=== PATIENT | female | born 1960 | race Caucasian/White ===

== ENCOUNTER 2024-12-27 15:26 | Inpatient (IN) | payer OTHER ==
--- OUTSIDE RECORDS SUMMARY | 2024-12-27 15:29 | XMS REPORT | Continuity of Care Document ---
Author Name Unknown Address [address] [facility] [address] [place] [address] [facility] Address [address] [facility] [address] [place] [address] Care Team Providers Care Director Of Graduate Medical Education Name Role Phone Pcp, Patient Does Not Have A Primary Care Physic radha ADENIKE LÓPEZ Attending Clinician Unavailable Adenike López MD Attending Clinician [phone] Chana Ceja RN Attending Clinician UnavailVenkata Bellamy DO Attending Clinician [phone] CHANEL STEWART Attending Clinician Unavailable CHANEL STEWART Attending Clinician Unavailable Chanel Stewart MD Attending Clinician [phone] DAYNA EMERSON Attending Clinician Unavailable DAYNA EMERSON Attending Clinician Unavailable Dayna Emerson PA-C Attending Clinician [phone] BLANQUITA WATTS Attending Clinician Unavailable BLANQUITA WATTS Attending Clinician Unavailable ADENIKE LÓEPZ Admitting Clinician Unavailable Adenike López MD Admitting Clinician [phone] Payers Payer Name Policy Type Policy Number Effective Date Expirati on Date Source [employer] MEDICARE OUT OF NETWORK [id number] 2024 00:00:00 [employer] MEDICARE [id number] 2024 00:00:00 Problems Condition Name Condition Details Condition Category Status Onset Date Resolution Date Last Treatment Date Treating Clinician Comments Source Obesity (BMI 30-39.9) Obesity (BMI 30-39.9) Disease Active 2023-11 0-21 00:00: 00 [facility] Lisfranc dislocatio n, left, initial encounter Lisfranc dislocatio n, left, initial encounter Disease Active 2023-11 0-17 00:00: 00 [facility] Allergies, Adverse Reactions, Alerts Allergy Name Allergy Type Status Severity Reaction(s) Onset Date Inactive Date Treating Clinician Comments Source Adhesive Tape-Kd icones Drug Allergy Active Swelling 2023-11 018 00:00: 00 [facility] ADHESIVE TAPE-KD ICONES DRUG Active High Swelling 2023-11 018 00:00: 00 [facility] Sulfa (Sulfona mide Antibiot ics) Propensi ty to adverse reaction s Active Rash 2023-11 0-13 00:00: 00 [facility] SULFA (SULFONA MIDE ANTIBIOT ICS) Drug Class Active Rash 2023-11 0- 00:00: 00 [facility] Social History Social Habit Start Date Stop Date Quantity Comments Source History of tobacco use Cigarette Smoker [facility] Tobacco use and exposure 2024-11-29 00:00:00 2024-11-29 00:00:[address] tobacco user [facility] History of Social function 2024-11-06 00:00:00 2024-11-06 00:00:00 [facility] Tobacco Comment 2024-09-06 00:00:00 2024-09-06 00:00:00 47 YEARS SMOKING OVER [address] [facility] Sex assigned at 1960 00:00:00 1960 00:00:00 [facility] Smoking Status Start Date Stop Date Source Smokes tobacco daily 2024-11-29 00:00:00 [facility] Medications Ordered Medication Name Filled Medication Name Start Date Stop Date Current Medication? Ordering Clinician Indication Dosage Frequency Signature (SIG) Comments Components Source hydralAZINE (APRESOLINE ) injection 10 mg 2023-11 0 19:17: 17 09-09 23:37 :36 No 10mg 10 mg, Slow IV Push, Q20MIN PRN, 2 doses, Starting on Mon09/09/24 at 1417, Until Mon09/09/24 at 1837, Routine, Other, SBP > 170mmHg or DBP > 90mmHg, PACU [facility] FENTanyl (PF) (SUBLIMAZE) injection 25 mcg 2023-11 19:17: 17 09-09 23:37 :36 No 25ug 25 mcg, Slow IV Push, Q5MIN PRN, 4 doses, Starting on Mon09/09/24 at 1417, Until Mon09/09/24 at 1837, Routine, Pain Scale 4-6, PACU [facility] ondansetron (ZOFRAN (PF)) injection 4 mg 2023-11 19:17: 16 09-09 23:37 :36 No 4mg 4 mg, Slow IV Push, PRN, 1 dose, Starting on Mon09/09/24 at 1417, Until Mon09/09/24 at 1837, Routine, Nausea and Vomiting (N/V), PACU [facility] sugammadex (BRIDION) injection 2023-11 18:45: 00 09-09 19:29 :46 No IV Push, ONCE INTRA PROCEDURE, Starting on Mon09/09/24 at 1345, Until Mon09/09/24 at 1429, Routine, Intra-op [facility] dexamethaso ne (DECADRON PHOSPHATE) injection 2023-11 17:28: 00 09-09 19:29 :46 No Intravenou s, ONCE INTRA PROCEDURE, Starting on Mon09/09/24 at 1228, Until Mon09/09/24 at 1429, Routine, Intra-op [facility] ceFAZolin (ANCEF) injection 2023-11 17:15: 00 09-09 19:29 :46 No Intravenou s, ONCE INTRA PROCEDURE, Starting on Mon09/09/24 at 1215, Until Mon09/09/24 at 1429, MARVIN, Intra-op [facility] ondansetron (ZOFRAN (PF)) injection 2023-11 17:09: 00 09-09 19:29 :46 No Slow IV Push, ONCE INTRA PROCEDURE, Starting on Mon09/09/24 at 1209, Until Mon09/09/24 at 1429, Routine, Intra-op [facility] lidocaine 1% (XYLOCAINE) 100 mg/10 mL (1 %) injection 2023-11 17:05: 00 09-09 19:29 :46 No Intravenou s, ONCE INTRA PROCEDURE, Starting on Mon09/09/24 at 1205, Until Mon09/09/24 at 1429, Routine, Intra-op [facility] rocuronium (ZEMURON) injection 2023-11 17:05: 00 09-09 19:29 :46 No IV Push, ONCE INTRA PROCEDURE, Starting on Mon09/09/24 at 1205, Until Mon09/09/24 at 1429, Routine, Intra-op [facility] propofoL IV infusion 2023-11 17:05: 00 09-09 19:29 :46 No Intravenou s, ONCE INTRA PROCEDURE, Starting on Mon09/09/24 at 1205, Until Mon09/09/24 at 1429, Routine, Intra-op [facility] FENTanyl (PF) (SUBLIMAZE) injection 2023-11 17:05: 00 09-09 19:29 :46 No Intravenou s, ONCE INTRA PROCEDURE, Starting on Mon09/09/24 at 1205, Until Mon09/09/24 at 1429, Routine, Intra-op [facility] lactated ringers IV infusion 2023-11 16:55: 00 09-09 19:29 :46 No IV Infusion, CONTINUOUS PRN, Starting on Mon09/09/24 at 1155, Until Mon09/09/24 at 1429, Routine, Intra-op [facility] ropivacaine 0.5 % (NAROPIN (PF)) injection 2023-11 16:45: 00 09-09 19:29 :46 No Epidural, ONCE INTRA PROCEDURE, Starting on Mon09/09/24 at 1145, Until Mon09/09/24 at 1429, Routine, Intra-op [facility] midazolam (VERSED) injection 2023-11 16:45: 00 09-09 19:29 :46 No IV Push, ONCE INTRA PROCEDURE, Starting on Mon09/09/24 at 1145, Until Mon09/09/24 at 1429, Routine, Intra-op [facility] atorvastati n 20 mg tablet 2023-11 14:29: 47 Yes Take 1 tablet every day by oral route. [facility] QUEtiapine 25 mg tablet 2023-11 14:29: 47 Yes TAKE 1 TABLET BY MOUTH EVERY DAY AT NIGHT [facility] HYDROcodone -acetaminop hen 10-325 mg tablet 2023-11 00:00: 00 09-17 04:59 :00 No 4647 1{tbl} Take 1 tablet by mouth every 6 (six) hours as needed for Pain (scale 7-10) for up to 7 days. Indication s: acute pain [facility] aspirin E.C. 325 mg EC tablet 2023-11 00:00: 00 09-09 00:00 :00 No [id number] 325mg Take 1 tablet by mouth in the morning and 1 tablet in the evening. Take with meals. [facility] ondansetron (ZOFRAN) 4 mg tablet 2023-11 00:00: 00 09-09 00:00 :00 No [id number] 4mg Take 1 tablet by mouth every 6 (six) hours. [facility] traMADoL 50 mg tablet 2023-11 00:00: 00 09-09 00:00 :00 No 4647 50mg Take 1 tablet by mouth every 6 (six) hours as needed for Pain (scale 4-6). Indication s: acute pain [facility] naproxen 500 mg tablet 2023-11- 00:00: 00 Yes [id number] 500mg Take 1 tablet by mouth in the morning and 1 tablet in the evening. Take with meals. [facility] HYDROcodone -acetaminop hen 10-325 mg tablet 2023-11 0-13 00:00: 00 09-09 04:59 :00 No 4647 1{tbl} Take 1 tablet by mouth every 6 (six) hours as needed for Pain (scale 7-10) for up to 7 days. Indication s: acute pain [facility] methocarbam oL 500 mg tablet 2023-11 0 00:00: 00 09-07 04:59 :00 No [id number] 500mg Take 1 tablet by mouth in the morning and 1 tablet at noon and 1 tablet in the evening. Do all this for 5 days. [facility] venlafaxine XR 75 mg 24 hr capsule 07-31 00:00: 00 Yes [facility] Vital Signs Vital Name Observation Time Observation Value Comments S ource Body temperature 2024-11-29 18:26:00 36.78 [facility] Body height 2024-11-29 18:26:00 170.2 cm [facility] Body weight 2024-11-29 18:26:00 90.719 kg [facility] BMI 2024-11-29 18:26:00 31.32 kg/m2 [facility] Body height 2024-11-06 18:32:00 170.2 cm [facility] Body weight 2024-11-06 18:32:00 90.719 kg [facility] BMI 2024-11-06 18:32:00 31.32 kg/m2 [facility] Body temperature 2024-09-25 16:25:[address] [facility] Body height 2024-09-25 16:25:00 170.2 cm [facility] Body weight 2024-09-25 16:25:00 90.719 kg [facility] BMI 2024-09-25 16:25:00 31.32 kg/m2 [facility] Heart rate 2024-09-09 21:10:00 76 /min [facility] Respiratory rate 2024-09-09 21:10:00 16 /min [facility] Oxygen saturation in Arterial blood by Pulse oximetry 2024-09-09 21:10:00 96 /min [facility] Systolic blood pressure 2024-09-09 21:05:00 97 mm[Hg] [facility] Diastolic blood pressure 2024-09-09 21:05:00 65 mm[Hg] [facility] Body temperature 2024-09-09 19:25:[address] [facility] Body height 2024-09-09 14:44:00 170.2 cm [facility] Body weight 2024-09-09 14:44:00 90.719 kg [facility] BMI 2024-09-09 14:44:00 31.32 kg/m2 [facility] Systolic blood pressure 2024-09-09 14:44:00 135 mm[Hg] [facility] Diastolic blood pressure 2024-09-09 14:44:00 77 mm[Hg] [facility] Heart rate 2024-09-09 14:44:00 63 /min [facility] Body temperature 2024-09-09 14:44:[address] [facility] Respiratory rate 2024-09-09 14:44:00 18 /min [facility] Body height 2024-09-09 14:44:00 170.2 cm [facility] Body weight 2024-09-09 14:44:00 90.719 kg [facility] BMI 2024-09-09 14:44:00 31.32 kg/m2 [facility] Oxygen saturation in Arterial blood by Pulse oximetry 2024-09-09 14:44:00 96 /min [facility] Body temperature 2024-09-07 21:03:[address] [facility] Respiratory rate 2024-09-07 21:03:00 18 /min [facility] Oxygen saturation in Arterial blood by Pulse oximetry 2024-09-07 21:03:00 94 /min [facility] Systolic blood pressure 2024-09-07 21:00:00 129 mm[Hg] [facility] Diastolic blood pressure 2024-09-07 21:00:00 95 mm[Hg] [facility] Heart rate 2024-09-07 21:00:00 65 /min [facility] Body height 2024-09-07 20:18:00 162.6 cm [facility] Body weight 2024-09-07 20:18:00 90.719 kg [facility] BMI 2024-09-07 20:18:00 34.33 kg/m2 [facility] Systolic blood pressure 2024-09-05 16:40:00 150 mm[Hg] [facility] Diastolic blood pressure 2024-09-05 16:40:00 78 mm[Hg] [facility] Heart rate 2024-09-05 16:40:00 72 /min [facility] Body height 2024-09-05 16:40:00 170.2 cm [facility] Body weight 2024-09-05 16:40:00 90.719 kg [facility] BMI 2024-09-05 16:40:00 31.32 kg/m2 [facility] Oxygen saturation in Arterial blood by Pulse oximetry 2024-09-05 16:40:00 93 /min [facility] Procedures Procedure Date / Time Performed Performing Clinician Source XR FOOT 3+ VW LEFT 2024-11-29 17:33:27 [facility]W LEFT 2024-11-29 17:33:16 [facility]KLE [facility]+ VW LEFT 2024-09-25 16:37:18 [facility]OT [facility]+ VW LEFT 2024-09-25 16:37:09 [facility] [place] TIME OR (NON-REPORTABLE) 2024-09-09 19:19:[address] [facility] [place] TIME OR (NON-REPORTABLE) 2024-09-09 19:19:[address] [facility] NERVE BLOCK 2024-09-09 17:59:38 Yang lomax [facility] INTUBATION 2024-09-09 17:06:00 Venkata Greene [facility] [id number] - [place] OPEN TREATMENT TARSOMETATARSAL JOINT DISLOCATION 2024-09-09 16:46:[address] [facility] [id number] - [place] OPEN TREATMENT METATARSAL FRACTURE EACH 2024-09-09 16:46:00 Adenike López [facility] [id number] - [place] PRQ SKEL FIXJ TARS JT DISLC W/MANJ 2024-09-09 16:46:00 [facility] Start Date/Time End Date/Time Encounter Type Admission Type Attending Clinicians Care Facility Care Department Encounter ID Source 2024-12-04 11:00:00 2024-12-04 11:00:00 Outpatient R ADENIKE LÓPEZ [facility] [id number] [facility] 2024-11-29 11:25:06 2024-11-29 23:59:00 [facility] 1.2.840.114 350.1.13.10 4.2.7.2.686 [id number] [facility] 2024-11-29 11:40:00 2024-11-29 12:52:59 Outpatient R ADENIKE LÓPEZ [facility] [id number] [facility] 2024-11-29 11:40:00 2024-11-29 12:52:59 Office Visit Adenike López [facility] MEDICAL OFFICE BUILDING 1.2.840.114 350.1.13.10 4.2.7.2.686 [id number] [facility] 2024-11-29 11:24:51 2024-11-29 11:24:51 [facility] 1.2.840.114 350.1.13.10 4.2.7.2.686 [id number] [facility] 2024-11-26 00:00:00 2024-11-27 08:06:05 Telephone Adenike López [facility] 1.2.840.114 350.1.13.10 4.2.7.2.686 [id number] [facility] 2024-11-06 11:32:02 2024-11-06 23:59:00 Outpatient R ADENIKE LÓPEZ [facility] [id number] [facility] 2024-11-06 11:32:02 2024-11-06 23:59:00 Hospital En[facility] 1.2.840.114 350.1.13.10 4.2.7.2.686 [id number] [facility] 2024-11-06 11:50:00 2024-11-06 13:02:08 [facility] 1.2.840.114 350.1.13.10 4.2.7.2.686 [id number] [facility] 2024-11-06 11:31:54 2024-11-06 11:31:54 Hospital Encounter [facility] 1.2.840.114 350.1.13.10 4.2.7.2.686 [id number] [facility] 2024-09-25 10:20:54 2024-09-25 23:59:00 Outpatient R ADENIKE LÓPEZ [facility] [id number] [facility] 2024-09-25 10:20:54 2024-09-25 23:59:00 Hospital Encounter [facility] 1.2.840.114 350.1.13.10 4.2.7.2.686 [id number] [facility] 2024-09-25 10:20:48 2024-09-25 23:59:00 Hospital Encounter [facility] 1.2.840.114 350.1.13.10 4.2.7.2.686 [id number] [facility] 2024-09-25 10:10:00 2024-09-25 10:20:00 Office Visit Adenike López [facility] MEDICAL OFFICE BUILDING 1.2.840.114 350.1.13.10 4.2.7.2.686 [id number] [facility] 2024-09-09 08:54:00 2024-09-09 16:15:00 Outpatient R ADENIKE LÓPEZ [facility] [id number] [facility] 2024-09-09 08:54:00 2024-09-09 16:15:00 Hospital Encounter Adenike López [facility] 1.2.840.114 350.1.13.10 4.2.7.2.686 [id number] [facility] 2024-09-09 11:55:00 2024-09-09 14:29:00 Anesthesia Event Chana Ceja, Chana Stiles [facility] 1.2.840.114 350.1.13.10 4.2.7.2.686 [id number] [facility] 2024-09-09 11:53:00 2024-09-09 14:21:00 Surgery Adenike López [facility] 1.2.840.114 350.1.13.10 4.2.7.2.686 [id number] [facility] 2024-09-07 15:19:00 2024-09-07 16:12:00 Emergency X CHANEL STEWART DONNELL [facility] ERT [id number] [facility] 2024-09-07 15:19:00 2024-09-07 16:12:00 Emergency Chanel Stewart [facility]S INCLUDE [facility] BEDS AT THE [facility] 1.2.840.114 350.1.13.10 4.2.7.2.686 [id number] [facility] 2024-09-05 12:05:51 2024-09-05 23:59:00 Outpatient R DAYNA EMERSON SELENA [facility] [id number] [facility] 2024-09-05 11:30:00 2024-09-05 11:58:41 Office Visit Dayna Emerson [facility] 1.2.840.114 350.1.13.10 4.2.7.2.686 [id number] [facility] 2024-09-01 04:08:22 2024-09-01 04:08:22 Outpatient BLANQUITA VANEGAS PHILLIP [facility] [id number] [facility] Results Test Description Test Time Test Comments Results Result Comments Source XR Ankle 3+ vw left 18:55:04 Ordering physician: ADENIKE Jean-Baptiste of service: ?11/29/2024 12:43 PMClinical history: ?ankle pain ? COMPARISON: 11/06/2024, 09/25/2024 Technique: 3 views left ankle 3 views of the left footTechnical Quality: AdequateFINDINGS: Left ankle:The patient is status post distal fibular ORIF with plate and screwfixation. This plate and screw fixation is stable without evidence ofloosening.Medial talar dome shows subtle indentation consistent with evolving medialosteochondral defect. No joint effusion present. Left foot: This patient has undergone repair of Lisfranc injury pattern.There are plate and screw fixation of the tarsometatarsal articulation ofthe first second third rays. There is also a screw spanning the base of thesecond metatarsal and medial cuneiform. The plate and screw fixation of the first ray proximal screw has backed outfrom the bone and the plate lies 2 mm proximal to the cortical surface. Onthe ankle screws there is the suspicion of a fracture through the screw aswell. This is not seen however on the images on the foot series. There ishowever suspicious soft tissue swelling over the plate and the findingsraise the question of loosening of this part of the fixation. The other 2plates appear stable. Also the screw spanning the Lisfranc articulationseems unchanged. [facility] XR Foot 3+ vw left 18:55:04 Ordering physician: ADENIKE Jean-Baptiste of service: ?11/29/2024 12:43 PMClinical history: ?ankle pain ? COMPARISON: 11/06/2024, 09/25/2024 Technique: 3 views left ankle 3 views of the left footTechnical Quality: AdequateFINDINGS: Left ankle:The patient is status post distal fibular ORIF with plate and screwfixation. This plate and screw fixation is stable without evidence ofloosening.Medial talar dome shows subtle indentation consistent with evolving medialosteochondral defect. No joint effusion present. Left foot: This patient has undergone repair of Lisfranc injury pattern.There are plate and screw fixation of the tarsometatarsal articulation ofthe first second third rays. There is also a screw spanning the base of thesecond metatarsal and medial cuneiform. The plate and screw fixation of the first ray proximal screw has backed outfrom the bone and the plate lies 2 mm proximal to the cortical surface. Onthe ankle screws there is the suspicion of a fracture through the screw aswell. This is not seen however on the images on the foot series. There ishowever suspicious soft tissue swelling over the plate and the findingsraise the question of loosening of this part of the fixation. The other 2plates appear stable. Also the screw spanning the Lisfranc articulationseems unchanged. [facility] FL TIME OR (NON-REPORTABLE ) 19:19:56 These images do not require a Radiology diagnostic report. [facility] FL TIME OR (NON-REPORTABLE ) 19:19:56 These images do not require a Radiology diagnostic report. [facility] Nerve Block 17:59:38 Arturo Whitaker MD ? ? 09/09/2024 ?1:01 PM Nerve Block Nerve Block Procedure List: popliteal / adductor. Patient Location: Block RoomLaterality: LeftSurgical Anesthesia: Post Op Pain: Start Time: 09/09/2024 11:45 AMEnd Time: 09/09/2024 11:47 AMPost Op Pain Management requested by surgeon per surgical: Progress Note and H&PAnesthesiologist: Arturo Whitaker MDPreanesthetic timeout completed prior to procedure: patient identified,IV checked, site marked, risks and benefits discussed, surgical consent, monitors and equipment checked, pre-op evaluation, timeout performedInformed consent obtained patient wishes to proceed: yesPatient Position: supineSterile Prep/Drape: YesMonitoring: continuous pulse ox, blood pressure and ECGInjection Technique: single-shotNeedle Gauge: 22 GNeedle Length: 4.0Number of Attempts: 1Technique: Ultrasound guided, Negative aspiration and Intermittent aspiration during injectionSensory Effect: AdequateEvents: Negative Aspiration, No paresthesia on incremental injection, No symptoms of intraneural or IV injection, Local anesthetic solution visualized around nerve and Patient tolerated procedure well Medications Given: Regional:Ropiv 0.5% 30 mL Sedation:Midazolam 2Fentanyl 50 Additional Notes:Block requested by Dr López for left tarsometatarsal ORIF [facility] Intubation 17:06:00 Venkata Greene DO ? ? 09/09/2024 12:24 PMIntubationDate/Time: 09/09/2024 12:06 PMUrgency: elective Airway not difficult General Information and Staff Patient location during procedure: ORPerformed: anesthesiologist Performed by: Venkata Greene DOAuthorized by: Venkata Greene DO ? Indications and Patient ConditionIndications for airway management: anesthesiaSpontaneous ventilation: presentSedation level: deepPreoxygenated: yesPatient position: sniffingMILS maintained throughoutMask difficulty assessment: 0 - not attempted Final Airway DetailsFinal airway type: endotracheal airway Successful airway: ETTCuffed: yes Successful intubation technique: video laryngoscopyFacilitating devices/methods: intubating styletEndotracheal tube insertion site: oralETT size (mm): 7.0Cormack-Lehane Classification: grade I - full view of glottisPlacement verified by: chest auscultation and capnometry Number of attempts at approach: 1Ventilation between attempts: noneNumber of other approaches attempted: 0 Additional CommentsSmooth, atraumatic, dentition and lips unchanged from pre-op. [facility] History and Physical Notes Date/Time Note Provider Source 2024-09-09 09:44:17 Orthopaedic Pre-Operative Note 09/09/2024 9:44 AM Had a discussion with Aileen Kumari about their upcoming procedure/surgery. The discussed procedure was Left foot CRPP vs ORIF. The risk, benefits, and alternatives to treatment were discussed of this options as well as non-operative treatment. The risks discussed where as follows, but not limited to chance of heart attack, chance of stroke, chance of , infection from the procedure/surgery, bleeding from the procedure/surgery, possible need for blood transfusions, symptomatic implants, malunion of fracture , nonunion of fracture, damage to nerves/arteries/veins/tendons /bones/skin/muscle/ligaments, need for further surgeries, blood clots with specfic focus on blood clots of the extremties (deep vein thrombosis) and blood clots of the lungs (pulmonary embolism). Aileen Kumari understood the risks, all questions were answered and Aileen Kumari would like to proceed with surgery. Please see informed consent statement below. I was present during the discussion and all questions were answered with Aileen Kumari consent. H&P reviewed including review of system and been no changes. Patient had been marked personally by me. Physical exam before procedure/surgery is as follows: Gen: NAD, swelling of foot with blistering SILT dp/sp/t/s/s Motor intact ehl/fhl/gs/ta 2+ dp and pt pulse, bcr Adenike López MD, MPH Department of Orthopaedic Surgery and Language Therapist Professor - Foot and Ankle Division [facility] Informed consent discussed with the patient, including: condition, proposed care, treatments and services, alternative forms of treatment, and risks of no treatment. Details discussed around the procedures to be used, and the risks and hazards involved, potential benefits, and side effects of the patient s proposed care, treatment, and services; the likelihood of the patient achieving his or her goals; and any potential problems that might occur during recuperation. Reasonable alternative also discussed with the patient s proposed care, treatment, and services. The discussion encompasses risks, benefits, and side effects related to the alternative and risks related to not receiving the proposed care, treatment, and services. ORT-ORTHOPAEDIC SURGERY STAFF [facility] Procedure Notes Date/Time Note Provider Source 2024-09-09 12:59:38 Associated Order(s): Nerve Block Nerve Block Nerve Block Procedure List: popliteal / adductor. Patient Location: Block Room Laterality: Left Surgical Anesthesia: Post Op Pain: Start Time: 09/09/2024 11:45 AM End Time: 09/09/2024 11:47 AM Post Op Pain Management requested by surgeon per surgical: Progress Note and H&P Anesthesiologist: Arturo Whitaker MD Preanesthetic timeout completed prior to procedure: patient identified,IV checked, site marked, risks and benefits discussed, surgical consent, monitors and equipment checked, pre-op evaluation, timeout performed Informed consent obtained patient wishes to proceed: yes Patient Position: supine Sterile Prep/Drape: Yes Monitoring: continuous pulse ox, blood pressure and ECG Injection Technique: single-shot Needle Gauge: 22 G Needle Length: 4.0 Number of Attempts: 1 Technique: Ultrasound guided, Negative aspiration and Intermittent aspiration during injection Sensory Effect: Adequate Events: Negative Aspiration, No paresthesia on incremental injection, No symptoms of intraneural or IV injection, Local anesthetic solution visualized around nerve and Patient tolerated procedure well Medications Given: Regional: Ropiv 0.5% 30 mL Sedation: Midazolam 2 Fentanyl 50 Additional Notes:Block requested by Dr López for left tarsometatarsal ORIF AN-ANESTHESIOLOGY ANESTHESIOLOGIST [facility] 2024-09-09 12:24:11 Associated Order(s): Intubation Intubation Date/Time: 09/09/2024 12:06 PM Urgency: elective Airway not difficult General Information and Staff Patient location during procedure: OR Performed: anesthesiologist Performed by: Venkata Greene DO Authorized by: Venkata Greene DO Indications and Patient Condition Indications for airway management: anesthesia Spontaneous ventilation: present Sedation level: deep Preoxygenated: yes Patient position: sniffing MILS maintained throughout Mask difficulty assessment: 0 - not attempted Final Airway Details Final airway type: endotracheal airway Successful airway: ETT Cuffed: yes Successful intubation technique: video laryngoscopy Facilitating devices/methods: intubating stylet Endotracheal tube insertion site: oral ETT size (mm): 7.0 Cormack-Lehane Classification: grade I - full view of glottis Placement verified by: chest auscultation and capnometry Number of attempts at approach: 1 Ventilation between attempts: none Number of other approaches attempted: 0 Additional Comments Smooth, atraumatic, dentition and lips unchanged from pre-op. T [facility]
[2024-12-27] MEDS ORDERED: ALBUTEROL 2.5 MG/3 ML NEB SOL ONE ×2 (16:13→18:39)
[2024-12-27] MEDS ORDERED: AZITHROMYCIN 250 MG TAB ONE (16:14)
[2024-12-27] MEDS ORDERED: IPRATROPIUM BROM 0.5MG/2.5ML ONE ×2 (16:14→18:39)
[2024-12-27 16:21] LABS: Absolute Basophils 0.1 K/uL (0-0.5); Absolute Eosinophils 0.1 K/uL (0-0.5); Absolute Lymphocytes (CBC) 1.3 K/uL (0.7-4.9); Absolute Monocytes 0.2 K/uL (0.1-1.3); Absolute Neutrophil 8.5 K/uL (1.8-8.0); Basophils % 0.9 % (0-1.3); Eosinophils % 0.8 % (0-4.4); Hematocrit 38.5 % (36.0-45.0); Hemoglobin 13.4 g/dL (12.0-15.0); Lymphocytes % 12.5 % (15.3-44.8); MCH 33.8 pg (27.0-35.0); MCHC 34.9 g/dL (32.0-36.0); MCV 96.8 fL (80-100); MPV 7.3 fL (7.6-11.3); Monocytes % 1.8 % (3.3-12.3); Platelets 429 thou/uL (152-406); RBC Red Blood Cell Count 3.98 M/uL (3.86-4.86); Red Cell Distribution Width 14.3 % (12.1-15.2)
[2024-12-27 16:32] LABS: Anion Gap 8.1 mEq/L (5.0-15.0)
[2024-12-27 16:33] LABS: Potassium 4.1 mEq/L (3.5-5.1)
--- NOTE | 2024-12-27 16:37 | RAD REPORT ---
Procedure: Chest Single View HISTORY: Cough COMPARISON: none FINDINGS: The lungs appear clear of acute infiltrate. No significant pleural effusion noted. The heart is normal size. IMPRESSION: No acute abnormality is displayed.
[2024-12-27 16:38] LABS: SARS-CoV-2 Antigen CONTROL BLUE LINE VIS/BG OK; SARS-CoV-2 Antigen Rapid Res Negative (Negative)
[2024-12-27 17:40] LABS: Arterial Blood Carboxyhemoglob 3.2 % (0-1.5); Blood Gas THB 13.9 g/dl (12-18); Blood O2 Saturation 87.4 % (92-98.5)
--- NOTE | 2024-12-27 18:08 | RAD REPORT ---
EXAMINATION: CTA CHEST PE CLINICAL INDICATION: Cough TECHNIQUE: 100 cc 370 Isovue administered intravenously. This examination was performed according to an angiographic protocol with 3D post-processing. This involves 3D reconstructions, MIPs, volume rendered images and/or shaded surface rendering. One or more of the following dose reduction techniqu es were used: Automated exposure control, adjustment of the mA and/or kV according to patient size, and/or iterative reconstruction. Unless otherwise specified, incidental findings do not require dedic ated imaging follow-up. [id number]. COMPARISON: No prior exam. FINDINGS: Suboptimal opacification pulmonary artery. No gross central pulmonary embolus seen. An aortic aneurysm not noted. No pleural effusion. No pericardial effusion. Mild right lower lobe opacities 2.6 cm left adrenal mass Hounsfield unit negative for likely an adenoma IMPRESSION: No gross evidence of a central pulmonary embolus Mild right lower lobe opacities may indicate a mild pneumonia
--- NOTE | 2024-12-27 18:13 | ER ---
Nurse's Notes [facility] Name: Farideh Kumari Age: 64 yrs Sex: Female : 1960 Arrival Date: 12/27/2024 Time: 15:26 Bed 19 Private MD: Diagnosis: Unspecified bacterial pneumonia Presentation: 12/27 15:34 Chief complaint: Patient states: Headache, cough, sore throat, diarrhea, and shortness cm10 of breath onset Monday. Pt states that she was on a cruise last week and her sister tested positive for COVID. Pt reports that she was seen at urgent care and told to come to the ER if O2 is not above 92%. Pt received Decadron 10mg IM. Coronavirus screen: Client indicates they have traveled out of the [place] in the last 14 days. Ebola Screen: Patient reports travel to Ebola-affected area in the 21 days before illness onset. Patient reports having traveled to: [place], [place]. Initial Sepsis Screen: Does the patient meet any 2 criteria? No. Patient's initial sepsis screen is negative. Does the patient have a suspected source of infection? No. Patient's initial sepsis screen is negative. Risk Assessment: Do you want to hurt yourself or someone else? Patient reports no desire to harm self or others. Onset of symptoms was December 27, 2024. 15:34 Method Of Arrival: Ambulatory cm10 15:34 Acuity: [place] 3 cm10 Triage Assessment: 15:38 General: Appears in no apparent distress. comfortable, Behavior is. Neuro: No deficits cm10 noted. Level of Consciousness is awake, alert, obeys commands, Oriented to person, place, time, situation, Appropriate for age. Respiratory: No deficits noted. Reports shortness of breath cough that is Airway is patent Respiratory effort is even, unlabored, Respiratory pattern is regular, symmetrical. Historical: - Allergies: 15:37 Sulfa (Sulfonamide Antibiotics); cm10 - Home Meds: 15:37 atorvastatin oral [Active]; Effexor Oral [Active]; cm10 - PMHx: 15:37 Hypercholesterolemia; Depressive disorder; cm10 - PSHx: 15:37 Total abdominal hysterectomy; cm10 - Immunization history:: Adult Immunizations up to date. - Infectious Disease History:: Denies. - Social history:: Smoking status: Patient reports the use of cigarette tobacco products, smokes one pack cigarettes per day. Screenin:45 [facility] ED Fall Risk Assessment (Adult) History of falling in the last 3 months, me1 including since admission No falls in past 3 months (0 pts) Confusion or Disorientation No (0 pts) Intoxicated or Sedated No (0 pts) Impaired Gait No (0 pts) Mobility Assist Device Used No (0 pt) Altered Elimination No (0 pt) Score/Fall Risk Level 0 - 2 = Low Risk Maintained a safe environment, Provided non-skid footwear, Hourly rounding (assess needs \T\ fall precautionary measures) done. Abuse screen: Denies threats or abuse. Nutritional screening: No deficits noted. Tuberculosis screening: No symptoms or risk factors identified. Assessment: 15:45 General: Appears ill, well groomed, well developed, well nourished, Behavior is calm, me1 cooperative, appropriate for age, Reports Headache, cough, sore throat, diarrhea, and shortness of breath onset Monday. Pt states that she was on a cruise last week and her sister tested positive for COVID. Pain: Complains of pain in head Pain does not radiate. Pain currently is 4 out of 10 on a pain scale. Quality of pain is described as aching, Pain began 2-3 days ago. Is continuous. Neuro: Level of Consciousness is awake, alert, obeys commands, Oriented to person, place, time, situation, Appropriate for age. Cardiovascular: Patient's skin is warm and dry. Rhythm is regular. Respiratory: Reports shortness of breath on exertion cough that is persistent Airway is patent Respiratory effort is even, unlabored, Respiratory pattern is regular, symmetrical, Breath sounds with wheezes bilaterally. GI: Reports diarrhea. : No signs and/or symptoms were reported regarding the genitourinary system. EENT: No signs and/or symptoms were reported regarding the EENT system. Derm: Skin is intact, is healthy with good turgor, Skin is pink, warm \T\ dry. Musculoskeletal: No signs and/or symptoms reported regarding the musculoskeletal system. 17:16 General: room air o2 sat dropped to 82%. Had patient sit up in bed and sat increased to me1 85%. o2 at 2 lpm via nc and sat increased to 96%. Vital Signs: 15:34 BP 136 / 65; Pulse 85; Resp 15; Temp 98.4(O); Pulse Ox 92% on R/A; Weight 90.72 kg; cm10 Height 5 ft. 7 in. ; Pain 2/10; 16:00 BP 118 / 64; Pulse 78; Resp 17; Pulse Ox 93% on R/A; me1 17:00 BP 135 / 65; Pulse 84; Resp 18; Pulse Ox 96% on 2 lpm NC; me1 18:00 BP 132 / 82; Pulse 78; Resp 16; Pulse Ox 93% on 3 lpm NC; me1 19:00 BP 120 / 62; Pulse 79; Resp 18; Pulse Ox 92% on 3 lpm NC; me1 15:34 Body Mass Index 31.32 (90.72 kg, 170.18 cm) cm10 15:34 Pain Scale: Adult cm10 ED Course: 15:32 Patient arrived in ED. ec2 15:33 Dmitry Shea MD is Attending Physician. ec2 15:37 Triage completed. cm10 15:38 Arm band placed on right wrist. Patient placed in an exam room, on a stretcher. cm10 15:45 Patient has correct armband on for positive identification. Bed in low position. Call ok1 light in reach. Side rails up X 1. Provided Education on: POC. Verbalized understanding.. Client placed on continuous cardiac and pulse oximetry monitoring. NIBP monitoring applied. athletic monitor on. Pulse ox on. NIBP on. 15:45 No provider procedures requiring assistance completed. me1 15:46 Jacey Taylor, THUY is Primary Nurse. me1 16:00 CXR XRAY In Process Unspecified. EDMS 16:11 Strep Sent. me1 16:11 SARS RAPID Sent. me1 16:11 Flu Sent. me1 16:11 BMP Sent. me1 16:11 CBC with Diff Sent. me1 16:11 Initial lab(s) drawn, by ok, sent to lab. COVID swab sent to lab. Flu and/or RSV swab me1 sent to lab. Strep swab sent to lab. Missed attempt(s): 22 gauge in left antecubital area. 17:55 CT Chest For PE Angio In Process Unspecified. EDMS 18:12 Elder Chow MD is Hospitalizing Provider. ec2 18:15 Inserted saline lock: 22 gauge in right wrist, using aseptic technique. me1 Administered Medications: 16:17 Drug: DuoNeb Nebulize (3:1) (2.5 mg - 0.5 mg) 3 ml Nebulizer once Route: Nebulizer; me1 17:15 Follow up: Response: No adverse reaction; Wheezing diminished me1 16:17 Drug: AZITHromycin PO 500 mg PO once Route: PO; me1 17:15 Follow up: Response: No adverse reaction me1 18:48 Drug: DuoNeb Nebulize (3:1) (2.5 mg - 0.5 mg) 3 ml Nebulizer once Route: Nebulizer; me1 21:15 Follow up: Response: No adverse reaction al5 18:48 Drug: Rocephin IV 1 grams IV at bolus once; Given slow IV push per pharmacy me1 instructions Route: IV; Rate: bolus; Site: right antecubital; 21:15 Follow up: Response: No adverse reaction; IV Status: Completed infusion; IV Intake: [id number] 18:48 Drug: MethylPrednisoLONE IVP 125 mg IVP once Route: IVP; Site: right antecubital; me1 21:15 Follow up: Response: No adverse reaction al5 18:48 Drug: Ondansetron IVP 4 mg IVP once; over 2 minutes Route: IVP; Site: right wrist; me1 21:15 Follow up: Response: No adverse reaction al5 Medication: 15:45 VIS not applicable for this client. me1 Intake: 21:15 IV: 50ml; Total: 50ml. al5 Outcome: 18:12 Decision to Hospitalize by Provider. ec2 21:44 Patient left the ED. cm10 Signatures: Dispatcher [employer] Maddie Siddiqui RN RN cm10 Jacey Taylor RN RN me1 Dmirty Shea MD MD ec2 Lulu Kraus RN RN al5 Corrections: (The following items were deleted from the chart) 17:11 15:34 Chief complaint: Patient states: Headache, cough, sore throat, diarrhea, and me1 shortness of breath onset Monday. Pt states that she was on a cruise last week and her sister tested positive for COVID. Pt reports that she was seen at urgent care and told to come to the ER if O2 is not above 92%. Pt received Decadron 10mg IM. cm10
--- NOTE | 2024-12-27 18:13 | EDPHYS ---
Physician Documentation [facility] Name: Farideh Kumari Age: 64 yrs Sex: Female : 1960 Arrival Date: 12/27/2024 Time: 15:26 Bed 19 Private MD: ED Physician Dmitry Shea HPI: 12/27 15:47 This 64 yrs old Female presents to ER via Ambulatory with complaints of ec2 Shortness Of Breath, Flu Symptoms. 15:47 Patient arrives today for evaluation of cough and shortness of breath. Reports she was ec2 concerned because she was told if her oxygen level does not rise above 92 should be further evaluated. Reports that she been having cough and congestion, recently was on a cruise with sick contacts. Patient reports no fevers, no vomiting. Does report some malaise as well as a productive cough. No diagnosed history of COPD however patient is a 45+ year smoker of approximately 1 pack/day.. 15:48 Patient was seen at urgent care prior to arrival, was given IM Decadron, breathing ec2 treatments as well as prescribed prednisone and albuterol.. Historical: - Allergies: 15:37 Sulfa (Sulfonamide Antibiotics); cm10 - Home Meds: 15:37 atorvastatin oral [Active]; Effexor Oral [Active]; cm10 - PMHx: 15:37 Hypercholesterolemia; Depressive disorder; cm10 - PSHx: 15:37 Total abdominal hysterectomy; cm10 - Immunization history:: Adult Immunizations up to date. - Infectious Disease History:: Denies. - Social history:: Smoking status: Patient reports the use of cigarette tobacco products, smokes one pack cigarettes per day. ROS: 15:48 Constitutional: as per hpi ec2 Exam: 15:48 Constitutional: GEN: NAD Head: atraumatic Eyes: EOMI Ears: External ears are ec2 normal. CV: regular rate LUNGS: no respiratory distress, occasional scattered wheeze, no tachypnea appreciated ABD: non-distended SKIN: no evidence of rashes MSK: no evidence of trauma Vital Signs: 15:34 BP 136 / 65; Pulse 85; Resp 15; Temp 98.4(O); Pulse Ox 92% on R/A; Weight 90.72 kg; cm10 Height 5 ft. 7 in. ; Pain 2/10; 16:00 BP 118 / 64; Pulse 78; Resp 17; Pulse Ox 93% on R/A; me1 17:00 BP 135 / 65; Pulse 84; Resp 18; Pulse Ox 96% on 2 lpm NC; me1 18:00 BP 132 / 82; Pulse 78; Resp 16; Pulse Ox 93% on 3 lpm NC; me1 19:00 BP 120 / 62; Pulse 79; Resp 18; Pulse Ox 92% on 3 lpm NC; me1 15:34 Body Mass Index 31.32 (90.72 kg, 170.18 cm) cm10 15:34 Pain Scale: Adult cm10 MDM: 15:35 Medical Screening Exam initiated ec2 15:48 Data reviewed: vital signs, nurses notes. ED course: Patient arrives today for ec2 shortness of breath and URI symptoms. Examination is revealing for scattered wheezes otherwise no significant work of breathing. Will obtain lab work, chest x-ray, viral swabs. Suspect undiagnosed COPD with exacerbation. Will give the patient DuoNeb, patient already prescribed steroids, will also give the patient azithromycin. 17:12 ED course: Patient noted to have some hypoxia with saturations in the low to mid 80s. ec2 Patient subsequently placed on oxygen. Will obtain CT scan of the chest to evaluate for PE as well. Ultimately still suspect infectious process however will also evaluate for PE given negative chest x-ray and hypoxia. 17:35 ED course: ABG obtained, shows normal pH status, slight alkalosis at 7.42, normal pCO2. ec2 Does have hypoxemia with an oxygen level at 56. Will increase patient's 2 L of oxygen to 4 L.. 18:11 ED course: CT scan shows pneumonia. Will admit for IV antibiotics, oxygen.. ec2 12/27 15:33 Order name: Flu; Complete Time: 17:12 cm10 12/27 15:33 Order name: SARS RAPID; Complete Time: 17:12 cm10 12/27 15:33 Order name: Strep cm10 12/27 15:47 Order name: CBC with Diff; Complete Time: 17:12 ec2 12/27 15:47 Order name: BMP; Complete Time: 17:12 ec2 12/27 16:41 Order name: Throat Culture EDSD 12/27 17:15 Order name: ABG; Complete Time: 17:59 ec2 12/27 19:11 Order name: Urinalysis w/ reflexes EDMS 12/27 19:11 Order name: CBC with Automated Diff EDMS 12/27 19:11 Order name: CBC with Automated Diff EDMS 12/27 19:11 Order name: Comprehensive Metabolic Panel EDMS 12/27 19:11 Order name: Comprehensive Metabolic Panel EDMS 12/27 15:38 Order name: CXR XRAY; Complete Time: 17:12 ec2 12/27 17:12 Order name: CT Chest For PE Angio; Complete Time: 18:11 ec2 12/27 15:47 Order name: IV; Complete Time: 16:11 ec2 12/27 17:35 Order name: Oxygen; Complete Time: 18:09 ec2 Administered Medications: 16:17 Drug: DuoNeb Nebulize (3:1) (2.5 mg - 0.5 mg) 3 ml Nebulizer once Route: Nebulizer; me1 17:15 Follow up: Response: No adverse reaction; Wheezing diminished me1 16:17 Drug: AZITHromycin PO 500 mg PO once Route: PO; me1 17:15 Follow up: Response: No adverse reaction me1 18:48 Drug: DuoNeb Nebulize (3:1) (2.5 mg - 0.5 mg) 3 ml Nebulizer once Route: Nebulizer; me1 21:15 Follow up: Response: No adverse reaction al5 18:48 Drug: Rocephin IV 1 grams IV at bolus once; Given slow IV push per pharmacy me1 instructions Route: IV; Rate: bolus; Site: right antecubital; 21:15 Follow up: Response: No adverse reaction; IV Status: Completed infusion; IV Intake: [id number] 18:48 Drug: MethylPrednisoLONE IVP 125 mg IVP once Route: IVP; Site: right antecubital; me1 21:15 Follow up: Response: No adverse reaction al5 18:48 Drug: Ondansetron IVP 4 mg IVP once; over 2 minutes Route: IVP; Site: right wrist; me1 21:15 Follow up: Response: No adverse reaction al5 Disposition Summary: 12/27/24 18:12 Hospitalization Ordered Notes: Hospitalization Status: Inpatient Admission ec2 Provider: Elder Chow ec2 Location: Telemetry/[facility] (Inpatient) ec2 Condition: Stable ec2 Problem: new ec2 Symptoms: have improved ec2 Bed/Room Type: Standard ec2 Room Assignment: 220(12/27/24 19:28) jl7 Diagnosis - Unspecified bacterial pneumonia ec2 Discharge Instructions: - Discharge Summary Sheet ec2 - Shortness of Breath, Adult, [id number] ec2 - Chronic Obstructive Pulmonary Disease Exacerbation, [id number] ec2 Forms: - Medication Reconciliation Form ec2 - SBAR form ec2 - Leadership Thank You Letter ec2 Prescriptions: - Zithromax Z-Jose 250 mg Oral Tablet - take 1 tablet ORAL route as directed for 5 days Day 1 - take two (2) tablets ec2 one time. Day 2, 3, 4 , 5 take one (1) tablet once daily.; 6 tablet; Refills: 0, Product Selection Permitted Signatures: Dispatcher [employer] EDMS Alana Barahona RN RN jl7 Maddie Velez RN RN cm10 Jacey Taylor RN RN me1 Dmitry Shea MD MD ec2 Lulu Kraus RN al5 Corrections: (The following items were deleted from the chart) 15:34 15:34 Influenza Screen (A \T\ B)+BA.LAB.BRZ ordered. EDMS EDMS 15:34 15:34 SARS-COV-2 Antigen Rapid+I.LAB.BRZ ordered. EDMS EDMS 15:34 15:34 Group A Streptococcus Rapid Sc+BA.LAB.BRZ ordered. EDMS EDMS 15:38 15:38 Chest Single View+RAD.RAD.BRZ ordered. EDMS EDMS 19:28 18:12 ec2 jl7
[2024-12-27] MEDS ORDERED: METHYLPREDNISOLONE 125 MG INJ ONE (18:39)
[2024-12-27] MEDS ORDERED: CEFTRIAXONE 1000 MG/VIAL ONE (18:39)
[2024-12-27] MEDS ORDERED: ONDANSETRON 4 MG/2 ML VIAL ONE (18:41)
[2024-12-27] MEDS ORDERED: ALBUTEROL 2.5 MG/3 ML NEB SOL NEB PRN (19:05)
[2024-12-27] MEDS ORDERED: ONDANSETRON 4 MG/2 ML VIAL IV PRN (19:05)
[2024-12-27] MEDS ORDERED: IPRATROPIUM BROM 0.5MG/2.5ML NEB PRN (19:05)
--- NOTE | 2024-12-27 19:05 | P.HP ---
Certification for Inpatient Patient admitted to: Inpatient With expected LOS: >2 Midnights Practitioner: I am a practitioner with admitting privileges, knowledge of patient current condition, hospital course, and medical plan of care. Services: Services provided to patient in accordance with Admission requirements found in Title 42 Section 412.3 of the Code of Federal Regulations Patient History Date of Service: 12/27/24 Reason for admission: SOB History of Present Illness: 64 yrs old Female with past medical history of hypertension, hyperlipidemia, depression, history of smoking was brought to ER with shortness of breath and flulike symptoms which has been going on for the last 2 days and has been progressively getting worse and was brought to ER. Patient was seen in the urgent care and was given Decadron and breathing treatments and was found to be hypoxic and was sent over here for further management . Associated with cough with mucoid expectoration. No fever no chills. Denies any nausea vomiting or diarrhea. Patient has history of smoking Patient was seen in the ER and was admitted for further management of pneumonia right lower lobe Allergies Sulfa (Sulfonamide Antibiotics) Allergy (Unknown, Verified 12/27/24 21:43) Hives/Rash Home medications list reviewed: Yes Home Medications: Albuterol Sulfate [Albuterol Sulfate Hfa] 2 puff IH Q4H PRN 12/27/24 Atorvastatin Calcium [Lipitor] 40 mg PO BEDTIME 12/27/24 Venlafaxine HCl [Effexor XR] 75 mg PO BEDTIME 12/27/24 predniSONE [Deltasone] 40 mg PO DAILY 12/27/24 - Past Medical/Surgical History Past Medical History: Reviewed- Non-Contributory -: Hypertension, depression Past Surgical History: Reviewed- Non-Contributory - Social History Smoking Status: Current some day smoker Review of Systems 10-point ROS is otherwise unremarkable Physical Examination - Vital Signs Temperature: 98.4 F Blood Pressure: 136/65 Pulse: 85 Respirations: 18 Pulse Ox (%): 94 - Physical Exam General: Alert, Oriented x3, Mild distress HEENT: Atraumatic, Normocephalic Neck: Supple, 2+ carotid pulse no bruit Respiratory: Diminished, Crackles/rales, Expiratory wheezes Cardiovascular: Normal pulses, Regular rate/rhythm, Normal S1 S2 Capillary refill: <2 Seconds Gastrointestinal: Soft and benign, W/out hepatosplenomegaly Musculoskeletal: No clubbing, No swelling Integumentary: No rashes, No breakdown Neurological: Normal speech, Normal strength at 5/5 x4 extr, Cranial nerves 3-12 intact Lymphatics: No axilla or inguinal lymphadenopathy - Studies Laboratory Data (last 24 hrs) 12/27/24 12/27/24 16:09 16:09 WBC 10.20 Hgb 13.4 Hct 38.5 Plt Count 429 H Sodium 137 Potassium 4.1 BUN 16 Creatinine 0.97 Glucose 171 H Microbiology Data (last 24 hrs): 12/27/24 16:03 Throat Group A Streptococcus Rapid Screen - Final 12/27/24 16:03 Nasopharnyx Influenza Type A Antigen Screen - Final 12/27/24 16:03 Nasopharnyx Influenza Type B Antigen Screen - Final Assessment and Plan - Plan Right lower lobe pneumonia Started on IV antibiotics Monitor closely Obtain cultures Change antibiotic as per sensitivity Acute hypoxic respiratory failure On oxygen supplementation Will try to wean down oxygen requirement Monitor closely on telemetry COPD exacerbation Monitor closely on telemetry Started on bronchodilators Oxygen supplementation Chest x-ray findings noted Hypertension Antihypertensives titrated Continue home medications and titrate as needed Smoking Advised cessation Offered measures Counseled against smoking GI/DVT prophylaxis Advanced directive full code Discharge Plan: Home Plan to discharge in: 48 Hours - Advance Directives Does patient have a Living Will: No Does patient have a Durable POA for Healthcare: No - Code Status/Comfort Care Code Status: Full Code Time Spent Managing Pts Care (In Minutes): 48
[2024-12-27] MEDS: ACETAMINOPHEN 325 MG TABLET PO PRN (21:47)
[2024-12-27 22:37] VITALS: BMI 31.7
[2024-12-27 22:54] LABS: Sqamous Epithelial <5 /HPF (None Seen); Urine Bacteria None Seen /HPF (<20); Urine Bilirubin NEGATIVE (Negative); Urine Blood Negative (Negative); Urine Clarity Clear (Clear); Urine Color Light-Yellow (Yellow); Urine Culture Reflex Order NOT NEEDED; Urine Glucose 1+ (Negative); Urine Ketones TRACE (Negative); Urine Microscopic Reflex YN ORDER UMIC; Urine Mucus Slight /HPF (None Seen); Urine Nitrite NEGATIVE (Negative); Urine Protein TRACE (Negative); Urine RBC <5 /HPF (None Seen); Urine Urobilinogen Normal (Normal); Urine WBC <5 /HPF (<5)
[2024-12-27 22:55] LABS: Specific Gravity > 1.030 (1.005-1.030)
[2024-12-28 04:58] LABS: Absolute Basophils 0.1 K/uL (0-0.5); Absolute Monocytes 0.1 K/uL (0.1-1.3); Absolute Neutrophil 5.4 K/uL (1.8-8.0); Basophils % 0.9 % (0-1.3); Eosinophils % 0.1 % (0-4.4); Hematocrit 37.3 % (36.0-45.0); Lymphocytes % 15.1 % (15.3-44.8); MCH 33.8 pg (27.0-35.0); MCHC 34.8 g/dL (32.0-36.0); MCV 97.2 fL (80-100); MPV 7.6 fL (7.6-11.3); Monocytes % 1.1 % (3.3-12.3); Neutrophils % 82.8 % (41.7-73.7); Platelets 394 thou/uL (152-406); RBC Red Blood Cell Count 3.83 M/uL (3.86-4.86); Red Cell Distribution Width 14.8 % (12.1-15.2)
[2024-12-28 05:21] LABS: Albumin 3.5 g/dL (3.4-5.0); Albumin/Globulin Ratio 0.8 (1.1-1.8); Anion Gap 18.6 mEq/L (5.0-15.0); Bilirubin Total 0.2 mg/dL (0.2-1.0); Globulin 4.3 g/dL (2.3-3.5); Potassium 4.6 mEq/L (3.5-5.1); Protein, Total 7.8 g/dL (6.4-8.2)
[2024-12-28] MEDS: ENOXAPARIN 40 MG/0.4 ML SQ SCH (09:15)
[2024-12-28] MEDS: AZITHROMYCIN IV 500 MG in NA CHLORIDE 0.9% 250 ML IVPB SCH (09:16)
[2024-12-28] MEDS: CEFTRIAXONE 1,000 MG in NA CHLORIDE 0.9% 50 ML IVPB SCH (09:16)
[2024-12-28] MEDS ORDERED: ALBUTEROL 2.5 MG/3 ML NEB SOL NEB PRN (10:16)
[2024-12-28] MEDS: DIPHENHYDRAMINE 25 MG TAB/CAP PO ONE (11:54)
[2024-12-28] MEDS: WATER FOR INJ,STERILE 10 ML IV ONE (11:55)
[2024-12-28] MEDS: HYDROCORTISONE SUC 100 MG INJ IV ONE (11:55)
[2024-12-28] MEDS: predniSONE 20 MG TAB PO SCH (13:00)
[2024-12-28] MEDS: NICOTINE 14 MG/PAT TD SCH (13:43)
--- NOTE | 2024-12-28 14:16 | P.PN ---
Subjective Date of Service: 12/28/24 Chief Complaint: SOB Patient reports generalized weakness. She developed redness at the site of injection of IV azithromycin and later developed generalized rash and hives. No recorded fever. She reported nonproductive cough. Patient desaturated to 85% on room air. Physical Examination - Vital Signs Temperature: 97.9 F Blood Pressure: 124/58 Pulse: 85 Respirations: 16 Pulse Ox (%): 89 - Studies Laboratory Data (last 24 hrs) 12/27/24 12/27/24 16:09 16:09 WBC 10.20 Hgb 13.4 Hct 38.5 Plt Count 429 H Sodium 137 Potassium 4.1 BUN 16 Creatinine 0.97 Glucose 171 H Microbiology Data (last 24 hrs): 12/27/24 16:03 Throat Group A Streptococcus Rapid Screen - Final 12/27/24 16:03 Nasopharnyx Influenza Type A Antigen Screen - Final 12/27/24 16:03 Nasopharnyx Influenza Type B Antigen Screen - Final Assessment And Plan - Plan Physical examination General: Alert and oriented x3, NAD, HEENT: Conjunctiva not pale, anicteric sclera Neck: Supple, no elevated JVD Heart: Heart sounds 1 and 2 normal, regular rhythm, normal rate, no pedal edema Lungs: Clear to auscultation bilaterally, diminished breath sounds bilaterally, no rhonchi or crackles. Abdomen: Soft, nondistended, nontender, normal bowel sounds. Extremities: No tenderness, no deformity Skin: Normal skin turgor, no rash, no nodules or ulcers. Neuro: No focal motor deficit. Normal speech. Psychiatry: Normal mood, no agitation. Diagnosis Acute viral illness Right lower lobe pneumonia Acute hypoxic respiratory failure COPD exacerbation Essential hypertension Tobacco use Right lower lobe pneumonia Acute viral syndrome COPD exacerbation Acute hypoxic respiratory failure Suspected allergy to current antibiotics-IV Rocephin and Zithromax. Antibiotics changed to oral Levaquin. Scheduled bronchodilators. Start the steroids. Wean oxygen as tolerated Check procalcitonin. Tobacco use Smoking cessation advised DVT prophylaxis: Taylor Advanced directive full code
[2024-12-28] MEDS: METHYLPREDNISOLONE 40 MG INJ IV SCH (17:54)
[2024-12-28] MEDS ORDERED: HOME MED 1 EA UNK (Venlafaxine Hcl [Effexor Xr] 150 MG Cap.Er.24h) PO SCH (21:00)
[2024-12-28] MEDS: ATORVASTATIN 40 MG TAB PO SCH (21:01)
[2024-12-28] MEDS: VENLAFAXINE HCL XR 75 MG CAP PO SCH (21:02)
[2024-12-29] MEDS ORDERED: AZITHROMYCIN 250 MG TAB PO SCH (09:00)
[2024-12-29] MEDS ORDERED: NICOTINE 14 MG/PAT TD SCH (09:00)
[2024-12-29] MEDS ORDERED: predniSONE 20 MG TAB PO SCH (09:00)
[2024-12-29] MEDS: levoFLOXacin 750 MG TAB PO SCH (09:12)
[2024-12-29 11:18] VITALS: O2SAT 91
--- NOTE | 2024-12-29 15:48 | P.DS ---
Admission Date: 12/27/24 Discharge Date: 12/29/24 Disposition: ROUTINE DISCHARGE Discharge Condition: FAIR Reason for Admission: SOB Hospital Course: Diagnosis Acute viral illness Right lower lobe pneumonia Acute hypoxic respiratory failure COPD exacerbation Essential hypertension Tobacco use Right lower lobe pneumonia Acute viral syndrome COPD exacerbation Acute hypoxic respiratory failure Patient admitted to the medical floor and treated for right lower lobe pneumonia and COPD exacerbation with antibiotics, IV steroid and bronchodilators. Patient developed hives and rashes while on Rocephin or Zithromax, however patient reported history of recurrent allergic rashes so it is not clear whether patient developed any allergies to named antibiotics. Antibiotics changed to oral Levaquin. Patient clinically improved but could not be weaned off oxygen. She desaturated to 88% on room air at rest Patient stated she is willing to quit smoking. Patient requested to go home today. She is prescribed home oxygen. She is prescribed oral Levaquin to continue treatment for pneumonia She is also prescribed Dulera for COPD. Patient was prescribed oral prednisone from urgent care which she is told to continue. Vital Signs/Physical Exam: Temp Pulse Resp BP Pulse Ox 97.9 F 58 12 129/82 96 12/29/24 12:00 12/29/24 12:00 12/29/24 12:00 12/29/24 12:00 12/29/24 12:00 General: Alert, In no apparent distress, Oriented x3 HEENT: Mucous membr. moist/pink, Sclerae nonicteric Neck: Supple, JVD not distended Respiratory: Clear to auscultation bilaterally, Diminished (Bilaterally) Cardiovascular: No edema, Regular rate/rhythm, Normal S1 S2 Gastrointestinal: Normal bowel sounds, Soft and benign, Non-distended, No tenderness Musculoskeletal: No swelling, No tenderness Integumentary: No cyanosis, Other (Maculopapular rash-back) Neurological: Normal speech, Normal strength at 5/5 x4 extr, Cranial nerves 3-12 intact Laboratory Data at Discharge: WBC 6.50 thou/uL (4.3-10.9) 12/28/24 04:01 Hgb 13.0 g/dL (12.0-15.0) 12/28/24 04:01 Hct 37.3 % (36.0-45.0) 12/28/24 04:01 Plt Count 394 thou/uL (152-406) 12/28/24 04:01 Sodium 143 mEq/L (136-145) D 12/28/24 04:01 Potassium 4.6 mEq/L (3.5-5.1) 12/28/24 04:01 BUN 15 mg/dL (7-18) 12/28/24 04:01 Creatinine 0.79 mg/dL (0.55-1.02) 12/28/24 04:01 Glucose 195 mg/dL (74-106) H 12/28/24 04:01 Total Bilirubin 0.2 mg/dL (0.2-1.0) 12/28/24 04:01 AST 13 U/L (15-37) L 12/28/24 04:01 ALT 19 U/L (13-56) 12/28/24 04:01 Alkaline Phosphatase 109 U/L (45-117) 12/28/24 04:01 Home Medications: Albuterol Sulfate [Albuterol Sulfate Hfa] 2 puff IH Q4H PRN 12/27/24 Atorvastatin Calcium [Lipitor] 40 mg PO BEDTIME 12/27/24 Venlafaxine HCl [Effexor XR] 75 mg PO BEDTIME 12/27/24 predniSONE [Prednisone*] 40 mg PO DAILY 12/27/24 Mometasone/Formoterol [Dulera 200 Mcg/5 Mcg Inhaler] 1 puff IH BID #1 ea 12/29/24 Nicotine [Nicoderm*] 14 mg TD DAILY #30 patch 12/29/24 levoFLOXacin [Levaquin*] 750 mg PO DAILY #7 tab 12/29/24 New Medications: Mometasone/Formoterol [Dulera 200 Mcg/5 Mcg Inhaler] 1 puff IH BID #1 ea levoFLOXacin [Levaquin*] 750 mg PO DAILY #7 tab Nicotine [Nicoderm*] 14 mg TD DAILY #30 patch Physician Discharge Instructions: Right lower lobe pneumonia Acute viral syndrome COPD exacerbation Acute hypoxic respiratory failure Patient admitted to the medical floor and treated for right lower lobe pneumonia and COPD exacerbation with antibiotics, IV steroid and bronchodilators. Patient developed hives and rashes while on Rocephin or Zithromax, however patient reported history of recurrent allergic rashes so it is not clear whether patient developed any allergies to named antibiotics. Antibiotics changed to oral Levaquin. Patient clinically improved but could not be weaned off oxygen. She desaturated to 88% on room air at rest Patient stated she is willing to quit smoking. She is prescribed home oxygen. She is prescribed oral Levaquin to continue treatment for pneumonia She is also prescribed Dulera for COPD. Patient was prescribed oral prednisone from urgent care which she is told to continue. Diet: AHA Activity: Ad darwin Followup: Gaurav Lee MD [ACTIVE - CAN ADMIT] - 1-2 Weeks NONE,NONE [Primary Care Provider] - 1-2 Weeks Time spent managing pt's care (in minutes): 38
[2024-12-29 16:48] VITALS: BP 157/87; TEMP 98.6
== END 2024-12-29 17:00 | disposition home or self-care (01) | DRG 193 ==
LOC: ER 15:26 → 2ND 19:05
PROVIDERS: ADMIT Family Medicine; ATTEND Internal Medicine
PROC: 4A033R1 Measurement of Arterial Saturation, Peripheral, Percutaneous Approach (ICD-10-PCS; principal; 2024-12-27)
DX: J18.9 Pneumonia, unspecified organism (principal); J96.01 Acute respiratory failure with hypoxia; E87.3 Alkalosis; J44.1 Chronic obstructive pulmonary disease with (acute) exacerbation; J44.0 Chronic obstructive pulmonary disease with (acute) lower respiratory infection; B34.9 Viral infection, unspecified; E78.00 Pure hypercholesterolemia, unspecified; F17.210 Nicotine dependence, cigarettes, uncomplicated; Z88.2 Allergy status to sulfonamides; Z90.710 Acquired absence of both cervix and uterus; Z79.52 Long term (current) use of systemic steroids; Z71.6 Tobacco abuse counseling; Z11.52 Encounter for screening for COVID-19; Z79.899 Other long term (current) drug therapy
CPT/HCPCS: 36415; 36600; 71045; 71275; 80048; 80053; 81001; 82805; 84145; 85025; 87070; 87081; 87804; 87811; 94010; 94760; 99285; J0696; J1650; J1720; J2405; J2919; J7050; J7512; J7613; J7644; Q9967